=== PATIENT | female | born 1975 | race Caucasian/White ===

== ENCOUNTER 2016-12-17 06:01 | Emergency (ER) | payer BC ==
[~2016-12-17] VITALS: Ht 160 cm; Wt 109.1 kg
[~2016-12-17 06:01] MED LIST: LEVO100T87 PO; PRENAT PO; PUMP INSULIN MC
[2016-12-17 06:05] VITALS: Ht 160 cm; Wt 109.1 kg
[2016-12-17] MEDS ORDERED: IBUPROFEN 800 MG TAB PO ONE (07:00)
[2016-12-17] MEDS ORDERED: NAPR-688 PO (07:30)
--- NOTE | 2016-12-17 07:37 | RADRPT ---
PROCEDURE: XR Left Ankle CLINICAL INDICATION: Inversion injury TECHNIQUE: Standard 3 view radiographs were submitted. COMPARISON: None FINDINGS: Osseous structures: There is an oblique fracture involving the shaft of the left fifth metatarsal wi th the distal fragment displaced medially by a corner the bone width. The remaining visualized osse ous elements appear intact. Calcaneal spurring is seen at the insertion of the Achilles tendon and p lantar aponeurosis. Joint spaces: The ankle mortise is well maintained. Mild degenerative change is seen both laterally and medially. Soft tissues: Appear unremarkable. IMPRESSION: 1. Oblique fracture involving the shaft of the left fifth metatarsal. 2. Mild degenerative change seen about the ankle joint. 3. Calcaneal spurring. Physician August Date Time Electronically viewed and signed by Physician August on 12/17/2016 07:37 /
--- NOTE | 2016-12-17 07:39 | ERD ---
ER Documentation Chief Complaint Date/Time DATE: 12/17/16 TIME: 07:36 Chief Complaint C/O LT ANKLE PAIN, TWISTED IT WHEN COMING DOWN STAIRS FROM HOME. HPI 41-year-old female presents after she missed a step and inverted her ankle in a parking lot. This occurred approximately 39 minutes ago. She has had pain at that site on the lateral ankle since. She had no other injuries. ROS All systems reviewed and are negative except as per history of present illness. Medications Home Meds Active Scripts Naproxen* (Naproxen*) 500 Mg Tablet, 500 MG PO BID Y for PAIN, #20 TAB Prov:JEY LOPEZ DO 12/17/16 Reported Medications Multivit/Min/Fol Ac/Iron/Pren* ( S*) 1 Tab Tab, 1 TAB PO DAILY, TAB 08/28/15 Insulin* PUMP (Insulin* PUMP) 1 Each Pump.resvr, 1 EACH MC . DIRECTED, EA 08/28/15 Levothyroxine Sodium* (Levothyroxine Sodium*) 100 Mcg Tablet, 250 MCG PO BEFORE BREAKFAST, #30 TAB 08/28/15 Allergies Allergies: Coded Allergies: No Known Allergies (Verified Adverse Reaction, Unknown, 12/17/16) PMhx/Soc History of Surgery: No Anesthesia Reaction: No Hx Neurological Disorder: No Hx Respiratory Disorders: No Hx Cardiac Disorders: No Hx Psychiatric Problems: No Hx Miscellaneous Medical Probl: No Hx Alcohol Use: No Hx Substance Use: No Hx Tobacco Use: No Smoking Status: Never smoker Physical Exam Vitals Vital Signs Date Time Temp Pulse Resp B/P Pulse Ox O2 Delivery O2 Flow Rate FiO2 12/17/16 06:05 97.8 87 18 139/75 99 Physical Exam Const: [] Mild distress Head: Atraumatic Skin: No petechiae or rashes Back: No midline or flank tenderness Ext: No cyanosis, mild lateral ankle edema below the lateral malleolus. Mild tenderness as well. No bruising. Able to still avelina and invert flex plantar and dorsally the ankle. Distal pulses intact with good capillary refill Neur: Awake and alert Psych: Normal Mood and Affect Results 24 hrs Current Medications Medications (Trade) Dose Ordered Sig/Jose Guadalupe Route PRN Reason Start Time Stop Time Status Last Admin Dose Admin Ibuprofen (Motrin) 800 mg ONCE ONCE PO 12/17/16 07:00 12/17/16 07:01 DC 12/17/16 07:29 Procedures/MDM Left lateral ankle sprain of the anterior talofibular ligament. Patient was given ibuprofen emergency room and requested crutches. I have explained to her the RICE pneumonic for sprained ankle. I am discharging her with naproxen and primary care follow-up in 2-3 days. Return precautions. I perform neurovascular exam after the Jose wrap application the patient was neurovascularly intact with good motor Ankle x-ray interpretation: I see no acute fracture dislocation. Departure Diagnosis: Primary Impression: Left ankle sprain Condition: Stable Patient Instructions: Treating Ankle Sprains Additional Instructions: Call your primary care doctor TOMORROW for an appointment during the next 2-3 days.See the doctor sooner or return here if your condition worsens before your appointment time. JEY LOPEZ DO Dec 17, 2016 07:39
== END 2016-12-17 07:48 | disposition home or self-care (01) ==
LOC: FTE 06:01
DX: S93.402A Sprain of unspecified ligament of left ankle, initial encounter (principal); E11.9 Type 2 diabetes mellitus without complications; X50.9XXA Other and unspecified overexertion or strenuous movements or postures, initial encounter; Y92.481 Parking lot as the place of occurrence of the external cause; Z79.4 Long term (current) use of insulin
CPT/HCPCS: 73610

== ENCOUNTER 2018-09-11 11:54 | Emergency (ER) | payer BC ==
[~2018-09-11] VITALS: Ht 165.1 cm; Wt 105.6 kg
[~2018-09-11 11:54] MED LIST changes: +LEVO100T8 PO; -LEVO100T87 PO; +NAPR-688 PO
[2018-09-11 12:04] VITALS: BP 136/62; PULSE 81; RESP 18; Ht 165.1 cm; Wt 105.6 kg
[2018-09-11] MEDS ORDERED: ONDANSETRON (ODT) 4 MG TAB ODT STA (13:42)
[2018-09-11] MEDS ORDERED: ONDA4TAB14 PO (15:02)
--- NOTE | 2018-09-12 06:42 | ERD ---
ER Documentation Chief Complaint Chief Complaint nausea, vomitting & diarrhea x1wk HPI 43-year-old female presents with nausea and vomiting x1 week. Patient states that she has some generalized abdominal pains. LNMP August 12. Denies fevers. Denies chest pain or shortness of breath. Has not taken medications for her symptoms. Patient is diabetic on Humalog and metformin. NKDA. Surgical history , cholecystectomy and carpal tunnel release. Social history denies ROS All systems reviewed and are negative except as per history of present illness. Medications Home Meds Active Scripts Ondansetron (Ondansetron Odt) 4 Mg Tab.rapdis, 4 MG PO Q6H PRN for NAUSEA AND/OR VOMITING, #10 TAB Prov:ALBERT HINES PA-C 09/11/18 Naproxen* (Naproxen*) 500 Mg Tablet, 500 MG PO BID PRN for PAIN, #20 TAB Prov:JEY LOPEZ DO 12/17/16 Reported Medications Multivit/Min/Fol Ac/Iron/Pren* ( S*) 1 Tab Tab, 1 TAB PO DAILY, TAB 08/28/15 Insulin* PUMP (Insulin* PUMP) 1 Each Pump.resvr, 1 EACH MC . DIRECTED, EA 08/28/15 Levothyroxine Sodium* (Levothyroxine Sodium*) 100 Mcg Tablet, 250 MCG PO BEFORE BREAKFAST, #30 TAB 08/28/15 Allergies Allergies: Coded Allergies: No Known Allergies (Verified Adverse Reaction, Unknown, 12/17/16) PMhx/Soc History of Surgery: No Anesthesia Reaction: No Hx Neurological Disorder: No Hx Respiratory Disorders: No Hx Cardiac Disorders: No Hx Psychiatric Problems: No Hx Miscellaneous Medical Probl: No Hx Alcohol Use: No Hx Substance Use: No Hx Tobacco Use: No Smoking Status: Never smoker FmHx Family History: No diabetes, No coronary disease, No other Physical Exam Vitals Vital Signs Date Temp Pulse Resp B/P (MAP) Pulse Ox O2 O2 Flow FiO2 Time Delivery Rate 09/11/18 98.2 81 18 136/62 100 12:04 (86) Physical Exam GENERAL: The patient is well-appearing, well-nourished, in no acute distress HEENT: Atraumatic. Conjunctivae are pink. Pupils equal, round, and reactive to light. There is no scleral icterus. Tympanic membranes clear bilaterally. Oropharynx clear. NECK: C-spine is soft and supple. There is no meningismus. There is no cerv ical lymphadenopathy. CHEST: Clear to auscultation bilaterally. There are no rales, wheezes or rhon chi. HEART: Regular rate and rhythm. No murmurs, clicks, rubs or gallops. ABDOMEN:Soft, nontender and nondistended. Good bowel sounds. No rebound or guarding. No gross peritonitis. No gross organomegaly or masses. Result Diagram: 09/11/18 1426 09/11/18 1426 Results 24 hrs Laboratory Tests Test 09/11/18 14:26 09/11/18 14:30 09/11/18 14:31 White Blood Count 8.7 10^3/ul Red Blood Count 4.57 10^6/ul Hemoglobin 13.7 g/dl Hematocrit 39.6 % Mean Corpuscular Volume 86.7 fl Mean Corpuscular Hemoglobin 30.0 pg Mean Corpuscular 34.6 g/dl Hemoglobin Concent Red Cell Distribution Width 12.3 % Platelet Count 233 10^3/UL Mean Platelet Volume 9.5 fl Immature Granulocytes % 0.600 % Neutrophils % 54.2 % Lymphocytes % 35.9 % Monocytes % 6.3 % Eosinophils % 2.4 % Basophils % 0.6 % Nucleated Red Blood Cells % 0.0 /100WBC Immature Granulocytes # 0.050 10^3/ul Neutrophils # 4.7 10^3/ul Lymphocytes # 3.1 10^3/ul Monocytes # 0.6 10^3/ul Eosinophils # 0.2 10^3/ul Basophils # 0.1 10^3/ul Nucleated Red Blood Cells # 0.0 10^3/ul Sodium Level 135 mmol/L Potassium Level 4.1 mmol/L Chloride Level 102 mmol/L Carbon Dioxide Level 25 mmol/L Anion Gap 8 Blood Urea Nitrogen 9 mg/dl Creatinine 0.55 mg/dl Est Glomerular Filtrat > 60 mL/min Rate mL/min Glucose Level 328 mg/dl Calcium Level 9.8 mg/dl Total Bilirubin 0.4 mg/dl Direct Bilirubin 0.00 mg/dl Indirect Bilirubin 0.4 mg/dl Aspartate Amino 17 IU/L Transf (AST/SGOT) Alanine 16 IU/L Aminotransferase (ALT/SGPT) Alkaline Phosphatase 100 IU/L Total Protein 6.8 g/dl Albumin 3.9 g/dl Globulin 2.90 g/dl Albumin/Globulin Ratio 1.34 Lipase 101 U/L Urine Color STRAW Urine Clarity CLEAR Urine pH 6.0 Urine Specific Vanderbilt 1.013 Urine Ketones NEGATIVE mg/dL Urine Nitrite NEGATIVE mg/dL Urine Bilirubin NEGATIVE mg/dL Urine Urobilinogen NEGATIVE mg/dL Urine Leukocyte Esterase TRACE Sascha/ul Urine Microscopic RBC 1 /HPF Urine Microscopic WBC 3 /HPF Urine Squamous Epithelial Cells FEW /HPF Urine Hemoglobin NEGATIVE mg/dL Urine Glucose 3+ mg/dL Urine Total Protein NEGATIVE mg/dl POC Beta HCG, Qualitative NEGATIVE Current Medications Medications Dose Sig/Jose Guadalupe Start Time Status Last (Trade) Ordered Route PRN Stop Time Admin Dose Reason Admin Ondansetron 4 mg ONCE STAT 09/11/18 DC 09/11/18 HCl (Zofran ODT 13:42 14:36 Odt) 09/11/18 13:43 Procedures/MDM ER course: Zofran p.o. challenge performed the ED. Blood work done. MDM: 43-year-old female presenting with nausea. Patient has findings consistent with hyperglycemia without evidence of DKA. I have low suspicion for infectious process. Patient's abdominal exam is within normal limits and I do not feel there is indication for abdominal CT or imaging. I have low suspicion for cardiac or pulmonary emergency. Patient is discharged with strict ER precautions and told to follow-up with primary care within 1 to 2 days for close evaluation. Patient is told if symptoms change or worsen to return immediately to the ER. All questions answered at discharge Departure Diagnosis: Primary Impression: Hyperglycemia Additional Impression: Nausea and vomiting Condition: Stable Patient Instructions: Hyperglycemia (High Blood Sugar), Nausea and Vomiting- Adult Referrals: [facility] YOU HAVE RECEIVED A MEDICAL SCREENING EXAM AND THE RESULTS INDICATE THAT YOU DO NOT HAVE A CONDITION THAT REQUIRES URGENT TREATMENT IN THE EMERGENCY DEPARTMENT. FURTHER EVALUATION AND TREATMENT OF YOUR CONDITION CAN WAIT UNTIL YOU ARE SEEN IN YOUR DOCTORS OFFICE WITHIN THE NEXT 1-2 DAYS. IT IS YOUR RESPONSIBILITY TO MAKE AN APPOINTMENT FOR FOLOW-UP CARE. IF YOU HAVE A PRIMARY DOCTOR --you should call your primary doctor and schedule an appointment IF YOU DO NOT HAVE A PRIMARY DOCTOR YOU CAN CALL OUR PHYSICIAN REFERRAL HOTLINE AT IF YOU CAN NOT AFFORD TO SEE A PHYSICIAN YOU CAN CHOSE FROM THE [facility] [address] [facility] [address] [facility] [facility] [address] [facility] [address] [facility] [address] [facility]. [facility] [address] Additional Instructions: FOLLOW UP WITH YOUR PRIMARY CARE PHYSICIAN TOMORROW.Return to this facility if you are not improving as expected. ALBERT HINES PA-C Sep 12, 2018 06:42
== END 2018-09-11 15:07 | disposition home or self-care (01) ==
LOC: FTE 11:54
DX: E11.65 Type 2 diabetes mellitus with hyperglycemia (principal); Z79.4 Long term (current) use of insulin
CPT/HCPCS: 36415; 80053; 81001; 81025; 83690; 85025; 99283